=== PATIENT | female | born 1940 | race Caucasian/White ===

== ENCOUNTER → 2019-05-29 | Outpatient (CLI) | payer MEDICARE, OTHER ==
--- NOTE | 2019-05-29 12:37 | XR ---
EXAMINATION TYPE: XR chest 2V DATE OF EXAM: 05/29/2019 COMPARISON: 12/11/2012 TECHNIQUE: PA and lateral views submitted. HISTORY: COPD FINDINGS: The lungs are clear and there is no pneumothorax, pleural effusion, or focal pneumonia. Coarsened i nterstitium is noted diffusely. Arthropathy of the shoulders and previous surgery involving the left humerus. Hypertrophic and degenerative change of the spine. Vague density in the left upper lobe paulo uring 1.8 cm. Cyst appears new from the prior exam. IMPRESSION: 1. Diffuse interstitial pattern. Correlate for chronic interstitial lung disease or fibrosis. Otherwi se consider interstitial pneumonitis. 2. There is a faint nodular appearing density in the left upper lobe measuring 1.[address] o f the chest to exclude pulmonary nodule.
== END | disposition home or self-care (01) ==
LOC: RADXRMAIN 12:20
PROVIDERS: ATTEND Family Medicine
DX: R91.8 Other nonspecific abnormal finding of lung field (principal); J44.9 Chronic obstructive pulmonary disease, unspecified
CPT/HCPCS: 71046

== ENCOUNTER → 2019-06-29 | Outpatient (CLI) | payer MEDICARE ==
[2019-06-29 16:16] LABS: African American GFR (CKD) >90 (>60 ml/min/1.73 sqM); Blood Urea Nitrogen 21 mg/dL (7-17)
--- NOTE | 2019-06-30 05:16 | CT ---
EXAMINATION TYPE: CT chest w con DATE OF EXAM: 06/29/2019 COMPARISON: 06/07/2010 and radiograph 05/29/2019 HISTORY: 78-year-old female nodules TECHNIQUE: Contiguous axial scanning of the chest after the administration of 100 mL of Isovue 300. Coronal/sagittal reconstructions performed. CT DLP: 293.7mGycm. Automatic exposure control utilized for a dose reduction. FINDINGS: Heart normal size without pericardial effusion. Aorta normal caliber with conventional branching anatomy. Scattered nonenlarged mediastinal lymph nodes. No progressive lymphadenopathy by CT size criteria. Evaluation of the lungs shows scattered subpleural and bibasilar reticular changes as well as superim posed mild emphysema. Some patchy areas of groundglass are also demonstrated greater within the mid a nd lower lungs. Subtle bibasilar bronchiectasis without honeycombing. Scattered 5 mm and smaller pulmonary nodules. Largest nodule left lower lobe measures 6 mm, axial yassine ge 39. No dominant pulmonary nodule at the questioned radiographic site. Small hiatal hernia. Visualized upper abdomen shows small cortical defects within the right kidney church ggesting sequela of prior vascular or infectious insults. Bones: Mild endplate spondylosis throughout. No osseous destructive process. IMPRESSION: 1. Subpleural and bibasilar reticular densities and patchy groundglass. Correlate for interstitial fi brosis or interstitial pneumonitis such as NSIP. Consider pulmonary referral. 2. Superimposed COPD with mild emphysema. 3. Scattered 5 mm small pulmonary nodules, largest nodule measuring 6 mm in the left lower lobe. Six- month follow-up CT recommended to reassess. 4. Small hiatal hernia.
== END | disposition home or self-care (01) ==
LOC: RADCTMAIN 15:34
PROVIDERS: ATTEND Family Medicine
DX: J43.9 Emphysema, unspecified (principal); R91.8 Other nonspecific abnormal finding of lung field; J94.8 Other specified pleural conditions
CPT/HCPCS: 82565; 84520; 71260; 36415; Q9967

== ENCOUNTER → 2019-07-14 | Outpatient (CLI) | payer MEDICARE | END | disposition home or self-care (01) | LOC: CPPFTMAIN 13:17 | PROVIDERS: ATTEND Nurse Practitioner Adult Health | DX: R06.02 Shortness of breath (principal) | CPT/HCPCS: 94060; 94726; 94729 ==

== ENCOUNTER → 2019-12-30 | Outpatient (CLI) | payer MEDICARE | END | disposition home or self-care (01) | CPT/HCPCS: 82565; 84520; 71260; 36415; Q9967 ==

== ENCOUNTER → 2020-07-10 | Outpatient (CLI) | payer MEDICARE ==
--- NOTE | 2020-07-12 09:50 | MM ---
Reason for exam: screening (asymptomatic). Last mammogram was performed 5 years and 11 months ago. History: Patient is postmenopausal. Physical Findings: A clinical breast exam by your physician is recommended on an annual basis and results should be correlated with mammographic findings. MG Screening Mammo w CAD Bilateral CC and MLO view(s) were taken. Prior study comparison: July 29, 2014, bilateral MG screening mammo w CAD. May 25, 2013, bilateral digital screening mammo w/CAD. There are scattered fibroglandular densities. Focal asymmetry right upper inner quadrant anterior position. This finding is changed when compared with previous exams. ASSESSMENT: Incomplete: need additional imaging evaluation, BI-RAD 0 RECOMMENDATION: Special view mammogram of the right breast. If lesion persists on supplemental views, image directed ultrasound is recommended. [facility] will attempt to contact patient to return for supplemental views and ultrasound if indicated.
== END | disposition home or self-care (01) ==
LOC: RADMAMWWP 13:30
PROVIDERS: ATTEND Family Medicine
DX: Z12.31 Encounter for screening mammogram for malignant neoplasm of breast (principal)
CPT/HCPCS: 77067

== ENCOUNTER → 2020-07-24 | Outpatient (CLI) | payer MEDICARE ==
--- NOTE | 2020-07-25 07:32 | MM ---
Reason for exam: additional evaluation requested from abnormal screening. Last mammogram was performed less than 1 month ago. History: Patient is postmenopausal. Physical Findings: Nurse did not find any significant physical abnormalities on exam. MG 3D Work Up W/Cad RT Spot compression CC, spot compression MLO, and LM view(s) were taken of the right breast. Prior study comparison: July 10, 2020, bilateral MG screening mammo w CAD. July 29, 2014, bilateral MG screening mammo w CAD. There are scattered fibroglandular densities. There is chronic nodularity in the right breast, stable since 2013. These results were verbally communicated with the patient and result sheet given to the patient on 07/24/20. ASSESSMENT: Incomplete: need additional imaging evaluation, BI-RAD 0 RECOMMENDATION: Ultrasound of the right breast.
--- NOTE | 2020-07-25 07:44 | USB ---
Reason for exam: additional evaluation requested from abnormal screening. History: Patient is postmenopausal. US Breast Workup Limited RT Right limited breast ultrasound including focal area of concern, retroareolar and axilla demonstrates a 5 x 2 x 3mm oval, cystic lesion at 1 o'clock. These results were verbally communicated with the patient and result sheet given to the patient on 07/24/20. ASSESSMENT: Benign, BI-RAD 2 RECOMMENDATION: Return to routine screening mammogram schedule for both breasts.
== END | disposition home or self-care (01) ==
LOC: RADMAMWWP 14:39
PROVIDERS: ATTEND Family Medicine
DX: R92.8 Other abnormal and inconclusive findings on diagnostic imaging of breast (principal)
CPT/HCPCS: 77065; 76642; G0279; 77061

== ENCOUNTER → 2020-09-06 | Outpatient (CLI) | payer MEDICARE ==
--- NOTE | 2020-09-06 17:59 | XR ---
Left foot HISTORY: Left foot pain 3 views left foot Degenerative changes present at the metatarsophalangeal joint and first digit. There is associated so ft tissue swelling. Reduced bone mineralization could limit sensitivity. There is a lucency present i nvolving the metaphysis of the first metatarsal, apparent cortical step-off noted on the oblique view . There is associated soft tissue swelling. There is a plantar calcaneal spur. IMPRESSION: Nondisplaced fracture of the first metatarsal is suspected. Additional findings above.
== END | disposition home or self-care (01) ==
LOC: RADXRMAIN 14:18
PROVIDERS: ATTEND Nurse Practitioner Family
DX: M19.072 Primary osteoarthritis, left ankle and foot (principal); M79.89 Other specified soft tissue disorders; M85.872 Other specified disorders of bone density and structure, left ankle and foot; M89.8X8 Other specified disorders of bone, other site

== ENCOUNTER → 2021-11-14 | Outpatient (CLI) | payer MEDICARE ==
--- NOTE | 2021-11-14 19:12 | BD ---
EXAMINATION TYPE: Axial Bone Density DATE OF EXAM: 11/14/2021 COMPARISON: 03.10.2002 CLINICAL HISTORY: 80 YR OLD FEMALE.....ICD-10 CODE: Z78.0 MENOPAUSAL Height: 61.3 Weight: 182 FRAX RISK QUESTIONS: Glucocorticoids (More than 3mos): YES (Ex: prednisone, prednisolone, methylprednisolone, dexamethasone, and hydrocortisone). Rheumatoid Arthritis: YES, Current Tobacco Use: QUIT 6 YRS AGO RISK FACTORS HISTORY OF: Postmenopausal woman: YES, AT 50 Lost more than 2 inches in height since high school: YES Hyperparathyroidism: NO Adrenal Insufficiency: NO MEDICATIONS: Prednisone or other steroids: YES, FOR COPD...FOR ABOUT 4-5 YRS Additional Medications: REFLUX MED, VIT D AND CALCIUM SYNTEX, METHOTREXATE Additional History: COPD, REFLUX, RA EXAM MEASUREMENTS: Bone mineral densitometry was performed using the [employer] System. Bone mineral density as measured about the Lumbar spine is: ----- L1-L4(G/cm2): 1.108 T Score Values are as follows: ----- L1: -1.1 ----- L2: -0.9 ----- L3: 0.1 ----- L4: -0.9 ----- L1-L4: -0.6 Bone mineral density has: Increased 1.4% since study of: 03.10.2002 Bone mineral density about the R hip (g/cm2): 0.980 Bone mineral density about the L hip (g/cm2): 0.999 T Score values are as follows: -----R Neck: -1.1 -----L Neck: -1.3 -----R Total: -0.2 -----L Total: -0.1 Bone mineral density has: Increased 3.8% since study of: 03.10.2002 FRAX%s: THERE IS A 22.6% CHANCE FOR A MAJOR OSTEOPOROTIC FX AND A 6.2% FOR HIPS.....PROBABILITY FOR FX IN 10 YRS TIME IMPRESSION: No evidence for osteopenia or osteoporosis. NOTE: T-SCORE=SD OF THE YOUNG ADULT MEAN.
--- NOTE | 2021-11-16 09:17 | MM ---
Reason for exam: screening (asymptomatic). Last mammogram was performed 1 year and 4 months ago. History: Patient is postmenopausal. Physical Findings: A clinical breast exam by your physician is recommended on an annual basis and results should be correlated with mammographic findings. MG 3D Screening Mammo W/Cad Bilateral CC and MLO view(s) were taken. Prior study comparison: July 24, 2020, right breast MG 3d work up w/cad RT. July 10, 2020, bilateral MG screening mammo w CAD. The breast tissue is almost entirely fat. Finding: There are typically benign, fine, diffuse/scattered calcifications in both breasts. No significant changes in finding since July 24, 2020 and July 10, 2020. ASSESSMENT: Negative, BI-RAD 1 RECOMMENDATION: Routine screening mammogram of both breasts in 1 year.
== END | disposition home or self-care (01) ==
LOC: RADMAMWWP 12:35
PROVIDERS: ATTEND Family Medicine
DX: Z12.31 Encounter for screening mammogram for malignant neoplasm of breast (principal); M85.89 Other specified disorders of bone density and structure, multiple sites; Z78.0 Asymptomatic menopausal state
CPT/HCPCS: 77063; 77067; 77080

== ENCOUNTER → 2022-02-07 | Outpatient (CLI) | payer MEDICARE ==
--- NOTE | 2022-02-08 08:49 | XR ---
EXAMINATION TYPE: XR chest 2V DATE OF EXAM: 02/07/2022 COMPARISON: 05/29/2019 TECHNIQUE: PA and lateral views submitted. HISTORY: Shortness of breath FINDINGS: Hyperinflation suggests COPD there is a diffuse reticular pattern compatible with chronic pulmonary f ibrosis. Biapical pleural thickening. A 1.4 cm nodule in the right suprahilar region. Hypertrophic an d degenerative changes spine. Postsurgical change involving the humerus. IMPRESSION: 1. Pulmonary fibrosis. 2. 1.4 cm right suprahilar nodule recommend CT scanning of the chest to assess for mass.
== END | disposition home or self-care (01) ==
LOC: RADXRMAIN 16:45
PROVIDERS: ATTEND Nurse Practitioner Family
DX: J84.10 Pulmonary fibrosis, unspecified (principal); R91.1 Solitary pulmonary nodule
CPT/HCPCS: 71046

== ENCOUNTER → 2022-06-26 | Outpatient (CLI) | payer MEDICARE ==
--- NOTE | 2022-06-27 21:50 | XR ---
EXAMINATION TYPE: XR chest 2V DATE OF EXAM: 06/26/2022 COMPARISON: Chest CT March 12, 2022 HISTORY: Dyspnea. TECHNIQUE: Frontal and lateral views of the chest are obtained. FINDINGS: Chronic parenchymal fibrotic changes bilaterally are present. There is no suspicious focal air space opacity, pleural effusion, or pneumothorax seen. The cardiac silhouette size is stable an d within normal limits. Scoliotic curvature centered in the upper lumbar spine is partially imaged. IMPRESSION: Chronic parenchymal fibrotic changes bilaterally redemonstrated. No acute pulmonary proc ess is seen.
== END | disposition home or self-care (01) ==
LOC: RADXRMAIN 17:19
PROVIDERS: ATTEND Family Medicine
DX: J84.10 Pulmonary fibrosis, unspecified (principal)
CPT/HCPCS: 71046

== ENCOUNTER → 2022-08-06 | Outpatient (CLI) | payer MEDICARE ==
--- NOTE | 2022-08-07 08:19 | CA ---
Transthoracic Echo Report Name: Martina Eagle Age: 81 Gender: F : 1940 Exam Date: 08/06/2022 14:54 Exam Location: [facility] Ht (in): 62 Wt (lb): 180 Ordering Physician: Buck Stover MD Attending/Referring Phys: [id number], [employer] Lary Porter, [facility] Procedure CPT: Indications: J44.1 CHRONIC OBSTRUCTIVE PULMONARY DISEASE Cardiac Hx: Technical Quality: Fair Contrast 1: Total Dose (mL): Contrast 2: Total Dose (mL): MEASUREMENTS (Male / Female) Normal Values 2D ECHO LV Diastolic Diameter PLAX 4.3 cm 4.2 - 5.9 / 3.9 - 5.3 cm LV Systolic Diameter PLAX 2.7 cm IVS Diastolic Thickness 1.0 cm 0.6 - 1.0 / 0.6 - 0.9 cm LVPW Diastolic Thickness 1.2 cm 0.6 - 1.0 / 0.6 - 0.9 cm LV Relative Wall Thickness 0.5 RV Internal Dim ED PLAX 2.4 cm LA Systolic Diameter LX 3.5 cm 3.0 - 4.0 / 2.7 - 3.8 cm LA Volume 42.7 cm??? 18 - 58 / 22 - 52 cm??? M-MODE Aortic Root Diameter MM 2.6 cm LA Systolic Diameter MM 3.8 cm LA Ao Ratio MM 1.5 MV E Point Septal Separation 0.5 cm AV Cusp Separation MM 1.4 cm DOPPLER MV Area PHT 3.3 cm??? Mitral E Point Velocity 35.1 cm/s Mitral A Point Velocity 79.9 cm/s Mitral E to A Ratio 0.4 MV Deceleration Time 229.1 ms MV E' Velocity 3.4 cm/s Mitral E to MV E' Ratio 10.4 FINDINGS Left Ventricle Left ventricular ejection fraction is estimated at 55%. Mildly increased left ventricular wall thickness. Right Ventricle Normal right ventricular size and function. Right Atrium Normal right atrial size. Left Atrium Left atrial dilatation. Mitral Valve Structurally normal mitral valve. Mild mitral regurgitation. Aortic Valve Aortic valve sclerosis. Tricuspid Valve Structurally normal tricuspid valve. Mild tricuspid regurgitation. Pulmonic Valve Pulmonic valve not well visualized. Pericardium Echo free space anterior to the right ventricle likely represents a fat pad. Aorta Normal size aortic root and proximal ascending aorta. CONCLUSIONS Left ventricular ejection fraction 55% Mildly increased left ventricular wall thickness Mild mitral regurgitation Mild tricuspid regurgitation No pericardial effusion Previewed by: Dr. Chaparro Durham DO (Electronically Signed) Final Date: 07 August 2022 08:18
== END | disposition home or self-care (01) ==
LOC: RADECHMAIN 14:39
PROVIDERS: ATTEND Family Medicine
DX: I08.1 Rheumatic disorders of both mitral and tricuspid valves (principal); J44.1 Chronic obstructive pulmonary disease with (acute) exacerbation
CPT/HCPCS: 93306